=== PATIENT | female | born 1985 | race Caucasian/White ===

== ENCOUNTER 2017-02-21 10:14 | Emergency (ER) | payer OTHER ==
[2017-02-21 11:33] VITALS: BP 134/74
--- NOTE | 2017-02-21 12:03 | UC ---
Respiratory Complaint HPI - HPI Summary HPI Summary: 31 yo female c/o approx 5 days progressively worse cough, sore throat, nasal congestion, sinus / ear discomfort. No rash. ? fever. Cough occasionally productive, no blood reported. No anayeli n/v/d. No immediate sick contacts although boyfriend sick a few weeks ago, resolved. - History of Current Complaint Chief Complaint: UCRespiratory Stated Complaint: SORE THROAT,EAR PAIN Time Seen by Provider: 02/21/17 11:41 Hx Obtained From: Patient Hx Last Menstrual Period: dec - Allergies/Home Medications Allergies/Adverse Reactions: Allergies Allergy/AdvReac Type Severity Reaction Status Date / Time environmental Allergy Congestion Uncoded 02/21/17 11:33 Home Medications: Home Medications Cyanocobalamin TAB* [Vitamin B12 TAB*] 500 mcg PO DAILY 02/21/17 [History Confirmed 02/21/17] Methylsulfonylmethane [MSM] 500 mg PO DAILY 02/21/17 [History Confirmed 02/21/17 ] Multiple Vitamins W/ Minerals [Multivitamin Adults] 1 tab PO QAM 02/21/17 [ History Confirmed 02/21/17] [place]-3 Fatty Acids [Fish Oil] 1,000 mg PO DAILY 02/21/17 [History Confirmed ] PMH/Surg Hx/FS Hx/Imm Hx Previously Healthy: Yes - Surgical History Surgical History: Yes Surgery Procedure, Year, and Place: [facility] - Family History Known Family History: Positive: None - Social History Alcohol Use: Occasionally Substance Use Type: None Smoking Status (MU): Former Smoker Review of Systems Constitutional: Other - see hpi Skin: Negative Eyes: Negative ENT: Sore Throat, Nasal Discharge, Sinus Congestion Respiratory: Cough Cardiovascular: Negative Gastrointestinal: Negative Genitourinary: Negative Motor: Negative Neurovascular: Negative Musculoskeletal: Negative Neurological: Headache Psychological: Negative Is Patient Immunocompromised?: No All Other Systems Reviewed And Are Negative: Yes Physical Exam Triage Information Reviewed: Yes Appearance: Well-Nourished Vital Signs: Initial Vital Signs Temp 98.6 F 02/21/17 11:27 Pulse 85 02/21/17 11:27 Resp 18 02/21/17 11:27 BP 134/74 02/21/17 11:27 Pulse Ox 100 02/21/17 11:27 Vital Signs Reviewed: Yes Eye Exam: Normal ENT: Positive: Pharyngeal erythema - uvula midline, TM dull Neck exam: Normal - + right submand small movable lymph node Neck: Positive: Supple, Nontender Respiratory Exam: Other - + rhonchorus cough Respiratory: Positive: Chest non-tender, Lungs clear, Normal breath sounds, No respiratory distress, No accessory muscle use Cardiovascular Exam: Normal Cardiovascular: Positive: RRR, No Murmur, Pulses Normal, Brisk Capillary Refill Abdominal Exam: Normal Abdomen Description: Positive: Nontender Musculoskeletal Exam: Normal Neurological Exam: Normal - nonfocal Psychological Exam: Normal - conversing easily and appropriately Skin Exam: Normal UC Diagnostic Evaluation - Laboratory O2 Sat by Pulse Oximetry: 100 Respiratory Course/Dx - Course Course Of Treatment: Influenza nasal swab neg. Rapid strep test neg - Differential Dx/Diagnosis Provider Diagnoses: Upper resp infection Discharge - Discharge Plan Condition: Stable Disposition: HOME Prescriptions: Albuterol HFA INHALER* [Ventolin HFA Inhaler*] 2 puff INH Q6H PRN #1 mdi PRN Reason: Wheezing Azithromyxin HINA (NF) [Z-Hina (Zithromax) 250 mg tabs #6] 2 tab PO .TODAY, THEN 1 DAILY #6 tab Fluconazole [Diflucan 150 MG (NF)] 150 mg PO DAILY #2 tab Patient Education Materials: Upper Respiratory Infection (ED) Additional Instructions: Follow up your primary care physician per routine. Seek medical attention for worse or new problems in the meantime.
== END 2017-02-21 13:36 | disposition home or self-care (01) ==
LOC: UCCORT 10:14
DX: J06.9 Acute upper respiratory infection, unspecified (principal); Z87.891 Personal history of nicotine dependence
CPT/HCPCS: 87502; 87651; 99202; G0463

== ENCOUNTER 2017-06-30 15:16 | Emergency (ER) | payer OTHER ==
[2017-06-30 15:27] VITALS: BP 139/55
[2017-06-30] MEDS ORDERED: LORazepam TAB(*) 0.5 MG PO ONE (15:51)
--- NOTE | 2017-06-30 15:51 | UC ---
Cardiac HPI - HPI Summary HPI Summary: Pt is accompanied by friend. Pt reports that while at work she saw a mouse, then began to feel hot, then chilled, nauseous, light headed, chest pain, sob and dizzy. Pt has only eaten bagel, banana and a "few crackers" today. Pt has history of depression currently is taking wellbutrin daily. Pt denies cardiovascular history or fmh of cardiac arrest. Pt states she is in general good health. NOw c/o at time of exam of GARCIA "behind eyes" feeling "jittery, and "anxious" - History of Current Complaint Hx Obtained From: Patient Hx Last Menstrual Period: end dec Onset/Duration: Sudden Onset, Still Present Timing: Constant Initial Severity: Mild Current Severity: Mild Pain Intensity: 7 Chest Pain Location: Mid Sternal Character: Tightness Aggravating Factor(s): Nothing Alleviating Factor(s): Rest Associated Signs & Symptoms: Positive: Chest Pain, Anxiety, Weakness, Dizziness , Syncope, Palpitations - Risk Factors Pulmonary Embolism Risk Factors: Negative Cardiac Risk Factors: Negative Atrial Fibrillation: Negative TAD Risk Factors: Negative <Belinda Hernandez NP - Last Filed: 06/30/17 16:30> <Esther Heart - Last Filed: 06/30/17 17:55> - History of Current Complaint Chief Complaint: UCChestPain Stated Complaint: CHEST PAIN Time Seen by Provider: 06/30/17 15:27 - Allergy/Home Medications Allergies/Adverse Reactions: Allergies Allergy/AdvReac Type Severity Reaction Status Date / Time environmental Allergy Congestion Uncoded 06/30/17 15:27 PMH/Surg Hx/FS Hx/Imm Hx Previously Healthy: Yes Psychological History: Depression - Surgical History Surgical History: Yes Surgery Procedure, Year, and Place: [facility] - Family History Known Family History: Positive: Cardiac Disease - Social History Occupation: Employed Full-time Lives: With Family Alcohol Use: Occasionally Substance Use Type: None Smoking Status (MU): Former Smoker Have You Smoked in the Last Year: No <Belinda Hernandez NP - Last Filed: 06/30/17 16:30> Review of Systems Constitutional: Negative Skin: Negative Eyes: Negative ENT: Negative Respiratory: Negative Cardiovascular: Palpitations, Chest Pain Gastrointestinal: Nausea Genitourinary: Negative Motor: Negative Neurovascular: Negative Musculoskeletal: Myalgia Neurological: Headache Psychological: Negative Is Patient Immunocompromised?: No All Other Systems Reviewed And Are Negative: Yes <Belinda Hernandez NP - Last Filed: 06/30/17 16:30> Physical Exam Triage Information Reviewed: Yes Appearance: Ill-Appearing Vital Signs: Initial Vital Signs Temp 98.2 F 06/30/17 15:19 Pulse 81 06/30/17 15:19 Resp 22 06/30/17 15:19 BP 139/55 06/30/17 15:19 Pulse Ox 99 06/30/17 15:19 Vital Signs Reviewed: Yes Eye Exam: Normal, Other - PERRLA ENT Exam: Normal Dental Exam: Normal Neck exam: Normal Respiratory Exam: Normal Cardiovascular Exam: Normal Abdominal Exam: Normal Musculoskeletal Exam: Normal Neurological Exam: Normal Psychological: Positive: Other: - anxious Skin Exam: Normal <Belinda Hernandez NP - Last Filed: 06/30/17 16:30> Vital Signs: Initial Vital Signs Temp 98.2 F 06/30/17 15:19 Pulse 81 06/30/17 15:19 Resp 22 06/30/17 15:19 BP 139/55 06/30/17 15:19 Pulse Ox 99 06/30/17 15:19 <Esther Heart - Last Filed: 06/30/17 17:55> Diagnostics - Laboratory Diagnostic Studies Completed/Ordered: Finger stick: 114 <Belinda Hernandez NP - Last Filed: 06/30/17 16:30> - Assessment/Plan Course Of Treatment: I discussed with the pt the signs and symptoms of anxiety as well as, CP, GARCIA, flight or flight response, hypoglycemia and vasovagal response. Pt verbalized understanding and agreed to plan of care. Pt was being driven by friend and states she has support person at home to be with her. - Differential Diagnoses - Chest Pain Differential Diagnosis/HQI/PQRI: Acute LA, ACS - Differential Diagnoses - Hypertension Differential Diagnosis/HQI PQRI: Myocardial Infarction - Differential Diagnoses - Palpitations Differential Diagnosis/HQI/PQRI: Hyperventilation, Panic Disorder, Paroxymal SVT - Clinical Impression Provider Diagnoses: Anxiety attack. Chest pain <Belinda Hernandez NP - Last Filed: 03/05/18 16:30> Discharge <Mary ESSAY,Belinda House - Last Filed: 06/30/17 16:30> <Esther Heart - Last Filed: 06/30/17 17:55> - Discharge Plan Condition: Stable Disposition: HOME Patient Education Materials: Lightheadedness (ED), Anxiety (ED) Referrals: Stefany Marina SOC[employer] SECURITY BENEFITS INTERVIEWER [Primary Care Provider] - As Soon As Possible Additional Instructions: Please follow up with your PCP as soon as possible. If symptoms do not improve or worsen, please seek care at the closest emergency department immediately Attestation Statement User Type: Provider - I was available for consult. This patient was seen by the DICK. The patient was not presented to, seen by, or examined by me. Ljj <Esther Heart - Last Filed: 06/30/17 17:55>
[2017-06-30] MEDS ORDERED: LORazepam TAB(*) 1 MG ONE (15:58)
== END 2017-06-30 16:28 | disposition home or self-care (01) ==
LOC: UCCORT 15:16
DX: F41.9 Anxiety disorder, unspecified (principal); R07.9 Chest pain, unspecified; F32.9 Major depressive disorder, single episode, unspecified; Z87.891 Personal history of nicotine dependence
CPT/HCPCS: 93005; 99212; A9270-GY; G0463

== ENCOUNTER 2018-07-08 17:29 | Emergency (ER) | payer OTHER ==
[2018-07-08 18:05] VITALS: BP 125/66
--- NOTE | 2018-07-08 18:35 | UC ---
Skin Complaint HPI - HPI Summary HPI Summary: 32-year-old female who had a small abscess on her right buttock over the past 2 days. She states on Friday it opened and has been draining and feels much better today. She wanted that checked. She also states she has had some abnormal vaginal discharge. She has a history of bacterial vaginosis in April for which she was treated. She is thinking this is a bacterial vaginosis again. She has an IUD which was inserted in November. Prior to that she had an IUD for 3 years. - History of Current Complaint Chief Complaint: UCSkin Time Seen by Provider: 07/08/18 18:06 Stated Complaint: SKIN CONCERN Hx Obtained From: Patient Hx Last Menstrual Period: unknown due to control ?: No Onset/Duration: Gradual Onset Skin Exposure Onset/Duration: Days Ago - Noticed the abscess formation over the weekend. Timing: Constant Onset Severity: Moderate Current Severity: Mild - Patient states is feeling much better because this been draining over the past 2 days Pain Intensity: 3 Location: Other - Right buttock Character: Swelling, Redness, Painful - Patient states feeling much better today since been draining. Aggravating Factor(s): Clothing Alleviating Factor(s): Nothing Associated Signs & Symptoms: Positive: Negative - Allergy/Home Medications Allergies/Adverse Reactions: Allergies Allergy/AdvReac Type Severity Reaction Status Date / Time environmental Allergy Congestion Uncoded 07/08/18 18:01 Home Medications: Home Medications Bupropion XL* [Wellbutrin XL *] 150 mg PO DAILY 07/08/18 [History Confirmed ] Cholecalciferol TAB* [Vitamin D TAB*] 1,000 unit PO DAILY 07/08/18 [History Confirmed 07/08/18] [id number]/Iron Fum/Folic/Docusate [ 19 Tablet] 1 tab PO DAILY 07/08/18 [ History Confirmed 07/08/18] PMH/Surg Hx/FS Hx/Imm Hx Previously Healthy: Yes - Surgical History Surgical History: Yes Surgery Procedure, Year, and Place: appy - Family History Known Family History: Positive: None, Cardiac Disease - Social History Alcohol Use: Occasionally Substance Use Type: None Smoking Status (MU): Former Smoker Have You Smoked in the Last Year: No Review of Systems All Other Systems Reviewed And Are Negative: Yes Constitutional: Positive: Negative Skin: Positive: Other - Abscess formation starting Friday and progressing Friday worsening Friday and then opening and draining yesterday. She states it feels much better today. Eyes: Positive: Negative ENT: Positive: Negative Respiratory: Positive: Negative Cardiovascular: Positive: Negative Gastrointestinal: Positive: Negative Genitourinary: Positive: Vaginal/Penile Discharge - Patient states she has had some abnormal vaginal discharge consistent with when she had bacterial vaginosis in April Motor: Positive: Negative Neurovascular: Positive: Negative Musculoskeletal: Positive: Negative Neurological: Positive: Negative Psychological: Positive: Negative Is Patient Immunocompromised?: No Physical Exam Triage Information Reviewed: Yes Appearance: Well-Appearing, No Pain Distress, Well-Nourished Vital Signs: Initial Vital Signs Temp 99 F 07/08/18 18:00 Pulse 70 07/08/18 18:00 Resp 15 07/08/18 18:00 BP 125/66 07/08/18 18:00 Pulse Ox 100 07/08/18 18:00 Vital Signs Reviewed: Yes Eye Exam: Normal ENT Exam: Normal Neck exam: Normal Respiratory Exam: Normal Cardiovascular Exam: Normal Abdominal Exam: Normal Bowel Sounds: Positive: Present Musculoskeletal Exam: Normal Neurological Exam: Normal Psychological Exam: Normal Skin: Positive: Other - Patient shaves her genital area. She has several areas of folliculitis on her buttocks. She has a small abscess on her right buttock however it is very small approximately 4 mm in length by 2 mm in width, is not actively draining, soft and minimal tenderness. Minimal erythema present. I believe at this time this is a resolving abscess. Course/Dx - Course Course Of Treatment: She has been comfortable here. She refused a pelvic exam at this point in time preferring to follow up with her primary care provider in the next day or 2 for a possible pelvic exam and treatment for possible bacterial vaginosis. We discussed warm baths and warm moist compresses to the affected area of the abscess since it appears to be getting better I want her to wait for one or 2 days before starting any antibiotic if it worsens. She is to definitely follow up with her primary care provider Friday if the area worsens. - Diagnoses Provider Diagnosis: Abscess of buttock, right Discharge - Sign-Out/Discharge Documenting (check all that apply): Patient Departure All imaging exams completed and their final reports reviewed: No Studies - Discharge Plan Condition: Good Disposition: HOME Prescriptions: Sulfamethox/Trimethoprim DS* [Bactrim DS 800/160 TAB*] 1 tab PO BID 7 Days #14 tab Patient Education Materials: Abscess (ED) Referrals: Lucho ACCOUNT ANALYST,Ling Kang [Primary Care Provider] - Additional Instructions: Warm moist compresses to the affected area or warm baths 3 or 4 times a day. If the area is worse in 24-48 hours to be start the antibiotic. Definite follow up with your primary care provider on Friday if no improvement or if worsening symptoms. Stop shaving that area until it is completely healed. Follow up with your primary care provider regarding the possibility of bacterial vaginosis. - Billing Disposition and Condition Condition: GOOD Disposition: Home
== END 2018-07-08 18:47 | disposition home or self-care (01) ==
LOC: UCCORT 17:29
DX: L02.31 Cutaneous abscess of buttock (principal); Z91.09 Other allergy status, other than to drugs and biological substances; Z87.891 Personal history of nicotine dependence
CPT/HCPCS: 99212; G0463